=== PATIENT | male | born 1990 | race Caucasian/White ===

== ENCOUNTER → 2020-09-23 | Outpatient (CLI) | payer SELFPAY | LOC: M LABSMTC 09:36 | PROVIDERS: ATTEND Pediatrics | DX: Z20.822 Contact with and (suspected) exposure to COVID-19 (principal) ==

== ENCOUNTER 2023-09-30 22:32 | Emergency (ER) | payer SELFPAY ==
[~2023-09-30] VITALS: Ht 172.7 cm; Wt 89.6 kg
[2023-10-01] MEDS ORDERED: BOOSTRIX VACCINE (TETANUS/DIPHTH/ACEL. PERTUSSIS) 0.5ML SYR IM ONE (00:40)
[2023-10-01] MEDS ORDERED: BACITRACIN OINTMENT 30GM TUBE TOP ONE (00:40)
[2023-10-01 01:20] VITALS: BP 155/101; TEMP 97.2; O2SAT 97
== END 2023-10-01 01:25 | disposition home or self-care (01) ==
LOC: M ED 22:32
DX: T23.151A Burn of first degree of right palm, initial encounter (principal); T23.141A Burn of first degree of multiple right fingers (nail), including thumb, initial encounter; X15.3XXA Contact with hot saucepan or skillet, initial encounter; F17.200 Nicotine dependence, unspecified, uncomplicated; Y92.009 Unspecified place in unspecified non-institutional (private) residence as the place of occurrence of the external cause; Y93.G3 Activity, cooking and baking; Y99.9 Unspecified external cause status; Z23 Encounter for immunization; T31.0 Burns involving less than 10% of body surface

== ENCOUNTER 2024-11-08 14:29 | Emergency (ER) | payer SELFPAY ==
[~2024-11-08] VITALS: Ht 172.7 cm; Wt 93.3 kg
[2024-11-08 15:03] LABS: BASO % 0.3 % (0.0-1.0); EOS % 0.2 % (0.0-3.0); HEMATOCRIT 51.1 % (42.0-52.0); HEMOGLOBIN 18.5 g/dl (13.5-17.5); LYMPH # 1.9 10^3/uL (1.5-5.0); LYMPH % 13.7 % (24.0-44.0); MEAN CORPUSCULAR HEMOGLOBIN 30.3 pg (27.0-33.0); MEAN CORPUSCULAR HGB CONC 36.2 g/dl (32.0-36.5); MEAN CORPUSCULAR VOLUME 83.8 fl (80.0-96.0); MONO # 1.1 10^3/uL (0.0-0.8); NEUTROPHILS # 10.5 10^3/uL (1.5-8.5); NEUTROPHILS % 77.4 % (36.0-66.0); PLATELET COUNT, AUTOMATED 315 10^3/uL (150-450); WHITE BLOOD COUNT 13.6 10^3/uL (4.0-10.0)
[2024-11-08] MEDS: METOCLOPRAMIDE INJ 10MG/2ML VIAL IV ONE (15:16)
[2024-11-08] MEDS: MORPHINE 4 MG/ML 1ML VIAL IV ONE (15:17)
[2024-11-08 15:29] LABS: CK-MB VALUE MASS < 1.0 NG/ML (<3.6)
[2024-11-08 15:31] LABS: ALBUMIN 4.2 G/DL (3.2-5.2); ALKALINE PHOSPHATASE 149 U/L (40-129); ALT/SGPT 699 U/L (7.0-40); AST/SGOT 500 U/L (<34); BILIRUBIN,DIRECT 3.8 MG/DL (<0.4); BILIRUBIN,TOTAL 6.6 MG/DL (0.3-1.2); BLOOD UREA NITROGEN 10 MG/DL (9-23); CALCIUM LEVEL 9.4 MG/DL (8.5-10.1); CARBON DIOXIDE LEVEL 21 MMOL/L (20-31); CHLORIDE LEVEL 107 MMOL/L (98-107); CREATININE FOR GFR 1.17 MG/DL (0.70-1.30); GLOMERULAR FILTRATION RATE > 60.0 (>60); GLUCOSE, FASTING 128 MG/DL (60-100); POTASSIUM SERUM 3.7 MMOL/L (3.5-5.1); SODIUM LEVEL 142 MMOL/L (136-145); TOTAL PROTEIN 7.1 G/DL (5.7-8.2)
[2024-11-08 15:32] LABS: CPK CREATINE PHOSPHOKINASE 262 U/L (46-171); MB/CK RELATIVE INDEX 0.38 (< OR =4)
[2024-11-08] MEDS ORDERED: ISOVUE-370 76% 100ML VIAL As Ordered ONE (15:34)
[2024-11-08 15:44] LABS: LIPASE > 3500 U/L (12-53)
[2024-11-08] MEDS: MORPHINE 4 MG/ML 1ML VIAL IV PRN ×2 (16:18→18:11)
[2024-11-08] MEDS: NS (Normal Saline) 0.9% 1,000 ML IV SCH (16:18)
[2024-11-08] MEDS: PIPERACILLIN/TAZOBACTAM SOD 3.375 GM in DEXTROSE 5% (D5W) ADV/MINI-BAG 50 ML IV ONE (17:50)
[2024-11-08 19:01] VITALS: BP 138/89; TEMP 96.6; O2SAT 94
== END 2024-11-08 19:21 | disposition short-term general hospital (02) ==
LOC: M ED 14:29
DX: K85.10 Biliary acute pancreatitis without necrosis or infection (principal); K80.60 Calculus of gallbladder and bile duct with cholecystitis, unspecified, without obstruction; K21.9 Gastro-esophageal reflux disease without esophagitis; F17.200 Nicotine dependence, unspecified, uncomplicated; Z90.89 Acquired absence of other organs
CPT/HCPCS: 36415; 71045; 76705; 80047; 80048; 80076; 82550; 82553; 83690; 84484; 85025; 93005; 93041; 94760; 96374; 96375; 96376; 99285; J2543; J2765